=== PATIENT | male | born 1940 | race Caucasian/White ===

== ENCOUNTER 2017-04-03 08:22 | Day surgery (SDC) | payer MEDICARE, OTHER ==
[2017-03-26 13:06] LABS: BASOPHILS 1.1 %; BASOPHILS ABSOLUTE 0.07 10/3/uL (0.0-0.16); EOSINOPHILS 2.1 %; EOSINOPHILS ABSOLUTE 0.14 10/3/uL (0.0-0.53); HEMATOCRIT 42.8 % (40.0-51.0); HEMOGLOBIN 13.7 g/dL (13.6-17.8); IMMATURE GRANULOCYTES 0.2 %; IMMATURE GRANULOCYTES ABSOLUTE 0.01 10/3/uL (0.0-0.11); LYMPHOCYTES 18.6 %; LYMPHOCYTES ABSOLUTE 1.22 10/3/uL (0.67-4.30); MEAN CORPUSCULAR HEMOGLOB 28.4 pg (26.0-34.0); MEAN CORPUSCULAR VOLUME 88.6 fL (80-100); MEAN PLATELET VOLUME 9.9 fL (9.2-13.0); MONOCYTES ABSOLUTE 0.46 10/3/uL (0.21-1.20); NEUTROPHILS ABSOLUTE 4.67 10/3/uL (2.02-8.40); PLATELET COUNT 234 10/3/uL (150-400); RED CELL COUNT 4.83 10/6/uL (4.7-6.1); WHITE BLOOD CELLS 6.6 10/3/uL (4.5-10.5)
[2017-03-26 13:09] LABS: MANUAL DIFF NO %
[2017-03-26 14:00] LABS: A/G RATIO 1.3 (0.7-1.9); ALBUMIN 3.9 G/DL (3.5-5.0); ALKALINE PHOSPHATASE 51 U/L (45-117); BUN (BLOOD UREA NITROGEN) 19 MG/DL (6-23); CALCIUM, SERUM 9.3 MG/DL (8.5-10.4); CHLORIDE, SERUM 109 MMOL/L (96-112); CO2 (CARBON DIOXIDE) 32 MMOL/L (24-34); CREATININE 1.16 MG/DL (0.70-1.30); GFR AFRICAN AMERICAN 71 ML/MIN (>=60); GFR NON AFRICAN AMERICAN 61 ML/MIN (>=60); GLOBULIN 3.1 G/DL (2.5-4.1); GLUCOSE, SERUM 91 MG/DL (60-99); POTASSIUM, SERUM 4.6 MMOL/L (3.5-5.3); SGOT(AST) 16 U/L (5-40); SGPT(ALT) 24 U/L (5-65); SODIUM, SERUM 147 MMOL/L (135-148)
--- NOTE | ~2017-04-03 | PREOPHP ---
PreOp History and Physical [id number] [place]. [address] NAME: EVA MCKAY II : 42 STATUS : [facility] [place] PAT#: [id number] AGE: 76 ADM/REG DATE : 04/03/17 MR#: [id number] REPORT SERV DATE: 04/03/17 DICTATED BY: KARLOS WOMACK III DATE: 02/25/17 REPORT STATUS : Cancelled TRANSCRIBED BY: FUENTES DATE: 02/25/17 HISTORY OF PRESENT ILLNESS: This 53-year-old male comes to the operating room for removal of a subclavian Port-A-Cath. The patient has a previous history of right colon cancer. He is status post appropriate treatment with chemotherapy. It is considered to be in remission regarding his cancer. He comes to the operating room now for removal of right subclavian Port-A-Cath. PAST MEDICAL HISTORY: History of stage III right colon cancer, status post previous laparoscopic right colectomy, and chemotherapy. ALLERGIES: NONE. MEDICATIONS: As per medication list. PHYSICAL EXAMINATION: GENERAL: He is a male, in no acute distress. He is alert and oriented x3. HEENT: Unremarkable. NEUROLOGIC: Cranial nerves 2 through 12 were normal. LUNGS: Clear. CARDIAC: Normal. ABDOMEN: Soft and nontender. ASSESSMENT: This is a 53-year-old male with history of stage III colon cancer, who has completed chemotherapy, with need for removal of subclavian Port-A-Cath. PLAN: The patient comes to the operating room now for removal of his subclavian vein Port-A- Cath. This procedure, the risks, benefits, and alternatives, including not limited to the risk for bleeding, infection, air embolus, pericardial tamponade, dislodgement of the Port-A Cath tubing requiring extraction, and unforeseen complications including deep venous thrombosis, pulmonary embolus, myocardial infarction, stroke, pneumonia, and , have been explained to the patient prior to surgery. His questions have been answered. He clearly understands the risks and agrees to surgery as planned. ROBERT/FUENTES Karlos Womack III, M.D. / [phone]
--- NOTE | ~2017-04-03 | PREOPHP ---
PreOp History and Physical [id number] [facility] [place]. [address] NAME: EVA MCKAY II : 42 STATUS : [facility]#: [id number] AGE: 76 ADM/REG DATE : 04/03/17 MR#: [id number] REPORT SERV DATE: 04/05/17 DICTATED BY: KARLOS WOMACK III DATE: 03/17/17 REPORT STATUS : Draft TRANSCRIBED BY: FUENTES DATE: 03/17/17 HISTORY OF PRESENT ILLNESS: This 76-year-old male comes to the operating room for laparoscopic cholecystectomy, possible laparotomy, for acalculous cholecystitis. The patient complains of a six-month history of intermittent episodes of right upper quadrant abdominal pain. The pain sometimes migrates to the right flank. The pain is associated with nausea and bloating. The patient has evidence for acalculous cholecystitis. His radiographic workup is normal, but his clinical exam and history are consistent with acalculous cholecystitis. He comes now for laparoscopic cholecystectomy, possible laparotomy. Based on the fact that his radiographic workup is not abnormal, it has been fully and completely explained to the patient that his symptoms may not be relieved by surgery. PAST MEDICAL HISTORY: 1. Hypertension. 2. Severe restless legs syndrome. 3. Depression. 4. Gastroesophageal reflux disease. MEDICATIONS: Carvedilol, clonazepam, hydrocodone, iron, Protonix, vitamins, calcium, zolpidem, and melatonin. SURGICAL HISTORY: Includes prostatectomy, lipoma excision, and hemorrhoidectomy. FAMILY HISTORY: Positive for heart disease and leukemia. SOCIAL HISTORY: No history of tobacco or alcohol use. ALLERGIES: NONE. REVIEW OF SYSTEMS: The patient complains of history of renal stone, back pain, and fatigue. His 14-point review of systems is otherwise unremarkable. OBJECTIVE/PHYSICAL EXAMINATION: GENERAL: This is a male, in no acute distress. He is alert and oriented x3. He is fairly obese. VITAL SIGNS: Blood pressure 123/76, pulse 59, temperature 97.7. HEENT: Unremarkable. Cranial nerves 2 through 12 are normal. LUNGS: Clear. HEART: Normal. ABDOMEN: Soft, nontender. No masses. LABORATORY DATA: Recent CT scan of the abdomen is unremarkable. Renal stones are noted. HIDA scan and gallbladder ultrasound are normal. ASSESSMENT: 1. A 76-year-old male with symptomatic acalculous cholecystitis. PreOp History and Physical [id number] [facility] [place]. [address] NAME: EVA MCKAY II : 42 STATUS : [facility]#: [id number] AGE: 76 ADM/REG DATE : 04/03/17 MR#: [id number] REPORT SERV DATE: 04/05/17 DICTATED BY: KARLOS WOMACK III DATE: 03/17/17 REPORT STATUS : Draft TRANSCRIBED BY: MODL DATE: 03/17/17 2. Obesity. 3. Gastroesophageal reflux disease. 4. Hypertension. 5. Severe restless legs syndrome. 6. Depression. PLAN: The patient comes to the operating room now for laparoscopic cholecystectomy, possible laparotomy. This procedure, the risks, benefits, and alternatives, including but not limited to, the risk for bleeding, infection, common bile duct injury, bile leak, retained common bile stone, enterotomy, injury to any abdominal structure, the definite possible need for laparotomy, possible persistence of his symptoms unrelieved by surgery, possibility of postoperative diarrhea or incisional hernia, and unforeseen complications including deep venous thrombosis, pulmonary embolus, myocardial infarction, stroke, pneumonia, and , have been fully and completely explained to the patient at length prior to surgery. The fact that this is a major operation with risk for major morbidity and mortality, no guarantee for relief of his symptoms has been explained. The expected length of recovery of both open and laparoscopic procedure was explained. In particular, the fact that his radiographic workup is essentially normal, with the HIDA scan showing ejection fraction of 40% which is low but technically normal, therefore, his symptoms may not be relieved by surgery have been explained at length. The patient's questions have been answered. He clearly understands the risks and agrees to surgery as planned. ROBERT/FUENTES Karlos Womack III, M.D. / [id number] CC: Cherry Taylor III, M.D.
--- NOTE | ~2017-04-03 | OP ---
Record Of Operation [facility] [address] [place]. [address] NAME: EVA MCKAY II : 42 STATUS : [facility]#: [id number] AGE: 76 ADM/REG DATE : 04/03/17 MR#: [id number] REPORT SERV DATE: 04/03/17 DICTATED BY: KARLOS PETERSEN III DATE: 04/03/17 REPORT STATUS : Draft TRANSCRIBED BY: MODNenita DATE: 04/03/17 DATE OF PROCEDURE: 04/03/2017 PREOPERATIVE DIAGNOSIS: Symptomatic acalculous cholecystitis. POSTOPERATIVE DIAGNOSIS: Symptomatic acalculous cholecystitis. PROCEDURE: Laparoscopic cholecystectomy. ANESTHESIA: General with intubation. COMPLICATIONS: None. ESTIMATED BLOOD LOSS: Less than 30 mL. SPECIMENS: Gallbladder. DRAINS: None. LAP AND SPONGE COUNT: Correct x3. BRIEF HISTORY: This 76-year-old male presented with clinical evidence for symptomatic acalculous cholecystitis. It was felt that laparoscopic cholecystectomy, possible laparotomy was indicated. This procedure, the risks, benefits, and alternatives, including but not limited to the risk for bleeding, infection, common bile duct injury, bile leak, retained common bile stone, enterotomy, or injury to any abdominal structure, the definite possible need for laparotomy, possible persistence of his symptoms unrelieved by surgery, possibility of postoperative diarrhea or incisional hernia, and unforeseen complications including deep venous thrombosis, pulmonary embolus, myocardial infarction, stroke, pneumonia, and , were fully and completely explained to the patient and family at length prior to surgery. The fact that this was a major operation with risk for major morbidity mortality and no guarantee for relief his symptoms were explained to them. The expected length of recovery with open laparoscopic procedure was explained. In particular, the fact that his radiographic workup was normal and therefore his symptoms might not be related to gallbladder disease and therefore might not be relieved by cholecystectomy was explained. The patient's questions were answered. He fully understood the risks and agreed to surgery as planned. FINDINGS: The patient's gallbladder castle were thickened and inflamed. There were adhesions between the gallbladder and omentum consistent with cholecystitis. The liver and remainder of the abdomen in all quadrants was normal as far as we could determine through the laparoscope. DESCRIPTION OF PROCEDURE: After being appropriately identified and after discussing the risks of surgery with the patient and his family in the preoperative area, the patient was taken to the operating room and placed in the supine position on the operating room table. Record Of Operation [facility] [address] [place]. [address] NAME: EVA MCKAY II : 42 STATUS : [facility]#: [id number] AGE: 76 ADM/REG DATE : 04/03/17 MR#: [id number] REPORT SERV DATE: 04/03/17 DICTATED BY: KARLOS PETERSEN III DATE: 04/03/17 REPORT STATUS : Draft TRANSCRIBED BY: FUENTES DATE: 04/03/17 General anesthesia was administered. He was intubated without difficulty. The abdomen was prepped and draped sterilely in the usual fashion. After an appropriate "[facility]-out" [facility], a small transverse incision was made below the umbilicus. The skin and fascia on either side was elevated with towel clips. A Veress needle was placed through the incision into the peritoneal cavity. Correct position of the needle in the peritoneal cavity was confirmed by the hanging drop test. The abdominal cavity was then insufflated to about 13 mmHg with carbon dioxide. Correct position of air in the peritoneal cavity was confirmed by palpation. The Veress needle was removed and replaced with 10-mm trocar. The laparoscope was placed through this. The patient was placed in the reverse Trendelenburg position and to his left. A second 10-mm trocar was placed just below the xiphoid process, to the right of the falciform ligament, under direct vision with the laparoscope. Two 5-mm trocars were placed along the right subcostal margin, one in the midaxillary line, the other in the midclavicular line. These were also placed under direct vision with the laparoscope. The upper abdomen was inspected. The gallbladder appeared to be chronically diseased. The gallbladder castle were thickened and inflamed consistent chronic cholecystitis. The liver and remainder of the upper abdomen were otherwise unremarkable as far as we could determine through the laparoscope. The appropriate instruments were placed through the trocars. The gallbladder was grasped and the infundibulum of the gallbladder was retracted laterally and inferiorly so as to expose the triangle of Calot. Using careful sharp and blunt dissection, the cystic duct was carefully and meticulously defined proximally and distally. The cystic duct was fairly long. The junction of the cystic duct with the common bile duct was appreciated, but not skeletonized. The cystic artery was similarly defined proximally and distally. The fibrous and fatty tissue between these structures was divided so as to clearly identify the critical angle. Once these structures were clearly defined, the cystic duct was clipped using two clips on the common bile duct side and one on the gallbladder side, all placed as close to the gallbladder as possible, taking care not encroach upon or injure the common bile duct in any way. The cystic duct was then divided between these clips as close to the gallbladder as possible. We elected not to perform a cholangiogram because there was no preoperative or intraoperative evidence for biliary dilatation and because the patient's preoperative liver enzymes were normal and because his biliary anatomy was clearly defined. Again, the structure was not divided or clipped until the critical angle and triangle of Calot had been clearly identified. The cystic artery was then similarly clipped and divided as close to the gallbladder as possible. Using the spatula and the cautery, the gallbladder was carefully dissected from the liver bed. This went very well. Before the gallbladder was completely removed, the gallbladder bed and portal areas were irrigated numerous times with saline. The saline was aspirated dry. This process was repeated several times until hemostasis was meticulously and thoroughly assured in all areas. It was also assured that the clips in the portal areas were in good position and there was no extravasation of bile from any accessory bile duct. Once this was assured, the gallbladder was completely dissected away from the liver and placed in the Endopouch. The liver bed was elevated, irrigated, and inspected for meticulous and thorough hemostasis and for absence of any biliary extravasation and to be certain that the clips were in good position. Once this was assured, the gallbladder and Endopouch were brought out through the infraumbilical incision and placed in the laparoscope through the subxiphoid port. The fascia of the infraumbilical incision was closed with 0 Vicryl suture. The lateral two trocars were removed. These two lower trocar sites were inspected on the underside for hemostasis with the laparoscope. Once this was assured, the subxiphoid trocar was removed Record Of Operation [facility] [address] [facility] [place]. [address] NAME: EVA MCKAY ARIEL : 42 STATUS : [facility] PAT#: [id number] AGE: 76 ADM/REG DATE : 04/03/17 MR#: [id number] REPORT SERV DATE: 04/03/17 DICTATED BY: KARLOS PETERSEN III DATE: 04/03/17 REPORT STATUS : Draft TRANSCRIBED BY: FUENTES DATE: 04/03/17 under direct vision with the laparoscope to assure hemostasis in this incision. The air was removed from the peritoneal cavity through this incision. The skin incisions were inspected for hemostasis, they were closed with running subcuticular 4-0 Monocryl stitches. They were injected with one-half percent Marcaine. Dressings were applied. Anesthesia was reversed and the patient was taken to the recovery room in stable condition. The patient tolerated the procedure well. His family was informed of the results of surgery. The patient was discharged later when he was stable, comfortable and tolerating liquids and able to void and ambulate. His family was advised that he should remain on a liquid diet today and advance this as tolerated to a regular diet tomorrow. He should keep wounds clean and dry for 48 hours and that he should not drive for 3-4 days after surgery or while using narcotics or Phenergan. They were advised that he should resume his usual medications. He was given a prescription for a narcotic and Phenergan, which he was advised to not take while driving. ROBERT/FUENTES Karlos Petersen III, M.D. / [id number] CC: Cherry Taylor III, M.D.
[~2017-04-03 08:22] MED LIST: AMB10 PO; APTIOM PO; CALCIUM PO; CO Q-10100 MG PO; COREG12 PO; FERROUS SULF325 M1 PO; IRON160 MG PO; KLONO1 PO; KLONO5 PO; LEXAPRO10 PO; MAG-DELAY PO; MAGNESIUM PO; MELATONIN1 M1 PO; NEUPRO 2MG2 MG/24 HR TOP; NEUPRO1 EAC1 TOP; NORCO1 TAB PO; PROTONIX PO; VITAMIN B PO; VITAMIN C100 MG PO; VITAMIN D1000 UNI1 PO; VITE PO
[2017-04-03 15:27] LABS: HEMOGLOBIN 13.6 g/dL (13.6-17.8)
== END 2017-04-03 16:39 | disposition home or self-care (01) ==
LOC: SDC 08:22
PROVIDERS: Surgery
PROC: 0FT44ZZ Resection of Gallbladder, Percutaneous Endoscopic Approach (ICD-10-PCS; principal; 2017-04-03 09:45)
DX: K81.1 Chronic cholecystitis (principal); I10 Essential (primary) hypertension; G25.81 Restless legs syndrome; F32.9 Major depressive disorder, single episode, unspecified; K21.9 Gastro-esophageal reflux disease without esophagitis; K76.0 Fatty (change of) liver, not elsewhere classified; N40.0 Benign prostatic hyperplasia without lower urinary tract symptoms; G47.33 Obstructive sleep apnea (adult) (pediatric); M19.90 Unspecified osteoarthritis, unspecified site; E66.9 Obesity, unspecified; Z85.038 Personal history of other malignant neoplasm of large intestine; Z90.79 Acquired absence of other genital organ(s); Z79.899 Other long term (current) drug therapy; Z99.81 Dependence on supplemental oxygen; Z98.890 Other specified postprocedural states; Z86.010 Personal history of colon polyps
CPT/HCPCS: 71020; 80053; 85014; 85018; 85025; 88304; 93005; A9270-GY; J0360; J0690; J1170; J1885; J2250; J2405; J2710; J3010